=== PATIENT | female | born 1980 | race Caucasian/White ===

== ENCOUNTER 2023-03-28 13:20 | Outpatient (CLI) | payer BC, SELFPAY | END 2023-03-28 13:21 | disposition home or self-care (01) | LOC: NFLDREF 03-31 10:57 | PROVIDERS: Visit Provider Family Medicine | DX: J02.9 Acute pharyngitis, unspecified (principal); A09 Infectious gastroenteritis and colitis, unspecified; R05.9 Cough, unspecified; J06.9 Acute upper respiratory infection, unspecified | CPT/HCPCS: 87045; 87046; 87077; 87177; 87209; 87427 ==